=== PATIENT | male | born 1985 | race Caucasian/White ===

== ENCOUNTER 2019-03-02 16:24 | Emergency (ER) | payer BC ==
[2019-03-02] MEDS ORDERED: LORazepam 1 MG Tab PO ONE (16:43)
--- NOTE | 2019-03-02 18:01 | EDM.PDOCBH ---
ED HPI GENERAL MEDICAL PROBLEM - General Chief Complaint: Behavioral/Psych Stated Complaint: [facility] Time Seen by Provider: 03/02/19 16:30 Source of Information: Reports: Patient History Limitations: Reports: No Limitations - History of Present Illness INITIAL COMMENTS - FREE TEXT/NARRATIVE: The patient presents by [facility] for an anxiety attack. The patient works at the [employer] and there was a problem with a valve. He got a little anxious and then started to breath fast and then it got worse and then he started cramping in his hands and legs. He also had some cramping in his face. He does have a history of anxiety and he is on citalopram for the anxiety. He has never had this happen before and this is no more stressful then what he has dealt with before. He has no more stress at home or with relationships. He has no fever, chills, cough, abdominal pain, nausea or vomiting. Onset: Sudden Duration: Minutes: Location: Reports: Face, Upper Extremity, Left, Upper Extremity, Right, Lower Extremity, Left, Lower Extremity, Right Quality: Reports: Other (Cramping) Severity: Severe Improves with: Reports: None Worsens with: Reports: None Associated Symptoms: Reports: Shortness of Breath. Denies: Chest Pain, Cough, Fever/Chills, Headaches, Nausea/Vomiting - Related Data Allergies Allergy/AdvReac Type Severity Reaction Status Date / Time Penicillins Allergy Rash Verified 03/02/19 16:28 Past Medical History Psychiatric History: Reports: Anxiety Social & Family History - Tobacco Use Smoking Status *Q: Never Smoker ED ROS GENERAL - Review of Systems Review Of Systems: See Below Constitutional: Reports: No Symptoms HEENT: Reports: No Symptoms Respiratory: Reports: Shortness of Breath Cardiovascular: Reports: No Symptoms Endocrine: Reports: No Symptoms GI/Abdominal: Reports: No Symptoms : Reports: No Symptoms Musculoskeletal: Reports: No Symptoms Skin: Reports: No Symptoms Neurological: Reports: Other (Cramping of his arms, legs and face) ED EXAM, BEHAVIORAL HEALTH - Physical Exam Exam: See Below Exam Limited By: No Limitations General Appearance: Moderate Distress Ears: Normal External Exam Nose: Normal Inspection Head: Atraumatic, Normocephalic Neck: Normal Inspection Respiratory/Chest: No Respiratory Distress, Lungs Clear, Normal Breath Sounds Cardiovascular: Regular Rate, Rhythm, No Edema, No Murmur GI/Abdominal: Soft, Non-Tender, No Organomegaly, No Mass Back Exam: Normal Inspection Extremities: Other (Cramping of his hands and legs and face) COURSE, BEHAVIORAL HEALTH COMP - Course Vital Signs: Last Vital Signs Temp 97.5 F 03/02/19 16:26 Pulse 80 03/02/19 16:26 Resp 20 03/02/19 16:26 BP 147/99 H 03/02/19 16:26 Pulse Ox 97 03/02/19 16:26 Orders, Labs, Meds: Medications Discontinued Medications Generic Name Dose Route Start Last Admin Trade Name Fran PRN Reason Stop Dose Admin Lorazepam 1 mg 03/02/19 16:43 03/02/19 17:18 Ativan PO 03/02/19 16:44 1 mg ONETIME ONE Administration Re-Assessment/Re-Exam: I ordered some ativan and after a short time he was doing much better. I will have him follow up with his doctor within a week and keep taking the medication. Departure - Departure Time of Disposition: 18:05 Disposition: Home, Self-Care 01 Condition: Good Clinical Impression: Anxiety, Hyperventilation syndrome - Discharge Information *PRESCRIPTION DRUG MONITORING PROGRAM REVIEWED*: No *COPY OF PRESCRIPTION DRUG MONITORING REPORT IN PATIENT ORQUIDEA: No Referrals: PCP,None [Primary Care Provider] - Additional Instructions: Keep taking your medication as prescribed. Get plenty of reset and eat a balanced diet and drink plenty of water. Follow up with your doctor within a week. Please return if you are worse.
== END 2019-03-02 18:18 | disposition home or self-care (01) ==
LOC: JD.ED 16:24
DX: F41.9 Anxiety disorder, unspecified (principal); F45.8 Other somatoform disorders; Z88.0 Allergy status to penicillin
CPT/HCPCS: 99284; A9270; 99283